=== PATIENT | female | born 1995 | race Two or more races ===

== ENCOUNTER 2024-08-02 11:29 | Inpatient (IN) | payer MEDICAID, SELFPAY ==
[2024-08-02] VITALS (70 sets, daily range): BP systolic 100–124; BP diastolic 51–71; PULSE 53–94; RESP 17–100; TEMP 36.6–37; O2SAT 97–100; BMI 24.1; BMI 24.2
--- NOTE | 2024-08-02 12:00 | PD.LDHP ---
Documentation for date of: 08/02/24 OB Labor/Induct. HPI History of Present Illness Chief complaint: 28 y/o 38w 5d presents to L&D in labor : 2 Para: 1 Term pregnancies: 1 pregnancies: 0 Living children: 1 History of Abortions: Spontaneous and Elective: 0 History of Vaginal deliveries: 1 History of sections: No History of : No Date of last menstrual period: 11/27/24 PIERRE: 08/11/24 Gestational Age (weeks): 38 Gestational Age (days): 5 Gestational age based on last menstrual period: -16 History of present illness: 28 y/o 38w 5d presents to L&D in labor at 4-5 cm dimple 2-3 minutes. Vertex, Membranes intact. GBS is neg. Pt's has been uncomplicated with the exception of anemia. Pt has a hx of nvdx1. EFW 3000g History of Present Dating criteria: based on 1st trimester US only Adequate Care: Yes Ultrasounds: normal mid trimester US Obstetrical complications: other (Anemia) Labs Maternal Blood Type: O Pos Labs: Positive: Rubella Titre, Negative: RPR, Hepatitis B, HIV, Chlamydia, Gonorrhea and Group Beta Strep and Unknown: Herpes Type 1, Herpes Type 2 and Covid-19 Review of Systems Review of Systems Systems Reviewed: All systems reviewed, normal except as documented Past Medical History Surgical History SURGICAL: Negative Section Meds Home Medications and Allergies Home Medications ?Medication ?Instructions ?Recorded ?Confirmed ?Type vit no.95-ferrous tab PO 08/02/24 History fumarate 28 mg-folic acid 800 mcg tablet () Allergies Allergy/AdvReac Type Severity Reaction Status Date / Time No Known Allergies Allergy Verified 08/02/24 11:48 OB Exam Physical Exam Vital signs: Temp Pulse Resp BP Pulse Ox O2 Del Method 98.2 F 75 20 116/62 100 Room Air 08/02/24 11:49 08/02/24 14:28 08/02/24 11:49 08/02/24 14:28 08/02/24 14:35 08/02/24 11:34 Constitutional Constitutional: no acute distress Routine HEENT Exam Head: Present normocephalic and atraumatic Eye: Present EOMI, PERRL and normal accommodation ENT: Present mucous membranes moist Routine Neck Exam Neck: Present supple, full ROM and trachea midline Routine Cardiovascular Exam Cardiovascular: Present RRR Routine Abdominal Exam Abdominal: Present soft and normoactive bowel sounds Comments: Gravid Uterus EFW 3000g Routine Exam External: Present normal urethra appearance; Absent lesions Detailed Labor and Delivery Exam Dilation (cm): 3-4 Effacement (%): 80 Cervix position: posterior station: -2 Consistency: soft Presentation: Vertex Membranes: intact Baseline heart rate: 125 monitor accelerations: 15x15 monitor decelerations: None group home variability: Moderate (11-25) Contraction frequency (min): 2-3 Routine Extremities Exam Extremities: Present full ROM Routine Back/Spine/Pelvis Exam Back/Spine: Present full ROM Routine Skin Exam Skin: Present intact, dry and warm Routine Neurological Exam Neurological: Present alert, oriented X3 and CN II-XII intact Routine Psychiatric Exam Psychiatric: Present normal affect and normal thought process OB Assessment & Plan Assessment and Plan (1) Normal labor: Status: Acute (2) with 38 completed weeks gestation: Status: Acute (3) Anemia affecting in third trimester: Status: Acute Additional Plan Induction method: none Plan: consult prn Additional Plan Comment: Routine admit orders Continuous EFM Anticipate
[2024-08-02] MEDS: fentaNYL CIT INJ 50 mCg/ML AMP 2ML 100 MCG IV (12:14)
[2024-08-02] MEDS: OXYTOCIN in NS 20 units 20 UNIT/1,000 ML BAG 125 UNIT IV (14:27)
[2024-08-02] MEDS: LIDOCAINE HCL 1% 20 ML VIAL INFL (14:28)
--- NOTE | 2024-08-02 14:40 | OBDSUM_ITS ---
Data ([facility]) Data Hx Section: No Maternal Blood Type: O Pos Rubella Titre: Positive RPR: Non-reactive Labs: Negative: RPR, Hepatitis B, HIV, Chlamydia, Gonorrhea and Group Beta Strep : 2 Para: 1 Term: 1 : 0 Livin Abortions: Spontaneous & Theraputic: 0 Delivery Data ([place]) Labor Data Initiation of labor: Spontaneous Induction/Augmentation Agent: None ROM date: 08/02/24 ROM time: 14:22 Amniotic membrane rupture type: Spontaneous Amniotic fluid description: Clear Delivery Data EDC: 08/11/24 EDC calculated by:: ultrasound Onset of labor date: 08/02/24 Onset of labor time: 07:30 Complete dilation date: 08/02/24 Complete dilation time: 14:24 delivery date: 08/02/24 delivery time: 14:24 Gestational age (weeks): 38 Gestational age (days): 5 Placenta delivery date: 08/02/24 Placenta delivery time: 14:27 Stage 1 total time: Labor - Stage 1 Duration 6 hours and 54 minutes Delivered by: Ani Ascencio Tree Tapping Laborer at delivery: No Support person(s) at delivery: FOB Delivery Method Delivery method: Normal Vaginal Delivery Presentation: Vertex position: OA Anesthesia Type Anesthesia Type: Local Anesthesia type: Local Delivery Room Medications Delivery room medications: Lidocaine (local), Pitocin 20 u IV and other (TXA) Placenta Placenta delivery description: Spontaneous Cord blood sent to lab: Yes cord blood collection: Cord Blood Type Episiotomy Episiotomy description: None Lacerations #1: Vaginal: 1st degree Perineal repair Sutures used for repair: 3.0 Vicryl (ct) EBL Estimated blood loss (ml): 200 Umbilical Cord cord description: 3 Vessels Additional Procedures of a viable female infant. Infant's anterior shoulder delivered with gentle downward traction on subsequent deliver the posterior shoulder and the body without complications. placed on mother's abdomen. Vigorous cry upon delivery. Cord was clamped. Cut by FOB. Cord blood obtained. Three- vessel cord noted. Placenta expelled spontaneously and intact. Patient sustained a first-degree vaginal laceration. Repaired using a 3-[address] suture. Perineum intact. Excellent hemostasis achieved after vigorous fundal massage and removal of clots from the posterior fornix. EBL 200. Sponge and needle count correct. Mother and baby stable, skin to skin and bonding in LDR. [place] Data ([place]) [place] Data order: 1 's gender: Female Identification band number: [id number] weight (gms): 3050 g Weight (pounds): 6 lbs and 11.6 ozs length: 48.26 cm 1 minute: 8 5 minutes: 9 10 minutes: 9
[2024-08-02] MEDS: TRANEXAMIC ACID 1,000 MG IVPB 1,000 MG/100 ML BAG 200 MG IV (15:30)
[2024-08-02 16:27] LABS: Basophils # (Auto) 0.1 Thou/mm3 (0.0-0.2); Basophils % (Auto) 0 % (0-2.5); Eosinophils # (Auto) 0.1 Thou/mm3 (0.0-0.5); Eosinophils % (Auto) 1 % (0-10); Hematocrit 29.7 % (36.0-46.0); Hemoglobin 9.3 g/dL (12.0-16.0); Immature Granulocytes % (Auto) 0 % (0-0); Immature Granulocytes Auto 0.04 Thou/mm3 (0.00-0.00); Lymphocytes # (Auto) 2.2 Thou/mm3 (1.0-4.8); Lymphocytes % (Auto) 18 % (10-50); Mean Corpuscular HGB Conc 31.3 g/dl (31.0-37.0); Mean Corpuscular Hemoglobin 22.2 pg (25.0-35.0); Mean Corpuscular Volume 71 fL (80-100); Monocytes # (Auto) 0.7 Thou/mm3 (0.0-0.8); Monocytes % (Auto) 5 % (0-12); Neutrophils # (Auto) 9.8 Thou/mm3 (1.8-7.7); Neutrophils % (Auto) 76 % (37-80); Nucleated Red Blood Cell % 0 /100 WBC (0); Platelet Count 374 Thou/mm3 (140-440); RDW Standard Deviation 39.6 fL (36.4-46.3); Red Blood Count 4.18 Miln/mm3 (4.00-5.20); White Blood Count 12.8 Thou/mm3 (3.6-11.0)
[2024-08-02 17:14] LABS: Syphilis Nonreactive (Nonreactive)
[2024-08-02 22:43] LABS: Basophils % (Auto) 0 % (0-2.5); Eosinophils % (Auto) 0 % (0-10); Hematocrit 28.2 % (36.0-46.0); Hemoglobin 8.9 g/dL (12.0-16.0); Immature Granulocytes % (Auto) 1 % (0-0); Immature Granulocytes Auto 0.07 Thou/mm3 (0.00-0.00); Lymphocytes # (Auto) 2.3 Thou/mm3 (1.0-4.8); Lymphocytes % (Auto) 15 % (10-50); Mean Corpuscular HGB Conc 31.6 g/dl (31.0-37.0); Mean Corpuscular Hemoglobin 22.6 pg (25.0-35.0); Mean Corpuscular Volume 72 fL (80-100); Monocytes % (Auto) 7 % (0-12); Neutrophils # (Auto) 11.5 Thou/mm3 (1.8-7.7); Neutrophils % (Auto) 77 % (37-80); Nucleated Red Blood Cell % 0 /100 WBC (0); Platelet Count 318 Thou/mm3 (140-440); RDW Standard Deviation 38.9 fL (36.4-46.3); Red Blood Count 3.93 Miln/mm3 (4.00-5.20); White Blood Count 14.9 Thou/mm3 (3.6-11.0)
[2024-08-03] VITALS: BP 97/52; PULSE 62; RESP 16; TEMP 36.9; O2SAT 100
[2024-08-03 04:00] VITALS: BP 103/62; PULSE 66; RESP 18; TEMP 36.8; O2SAT 98
--- NOTE | 2024-08-03 07:14 | PD.LDDS ---
DS: Providers Provider Date of admission: 08/02/24 11:46 Primary care physician: Randall Carrera MD Admitting Provider: Ani Ascencio CNM Attending Provider on Admission: Ani Ascencio CNM Attending Provider on DC: Ani Ascencio CNM Discharging Provider: Ani Ascencio CNM Anticipated date of discharge: 08/03/24 DS: Diagnosis Discharge Diagnosis (1) Normal spontaneous vaginal delivery: Status: Acute (2) Encounter for care of lactating mother: Status: Acute Problem List Completed Was Problem List Reviewed/Reconciled?: Yes Summary/Hosp Course Brief History: 28 y/o 38w 5d presents to L&D in labor at 4-5 cm dimple 2-3 minutes. Vertex, Membranes intact. GBS is neg. Pt's has been uncomplicated with the exception of anemia. Pt has a hx of nvdx1. EFW 3000g 08/02/24: of a viable female infant. Infant's anterior shoulder delivered with gentle downward traction on subsequent deliver the posterior shoulder and the body without complications. Infant placed on mother's abdomen. Vigorous cry upon delivery. Cord was clamped. Cut by FOB. Cord blood obtained. Three-vessel cord noted. Placenta expelled spontaneously and intact. Patient sustained a first-degree vaginal laceration. Repaired using a 3-[address] suture. Perineum intact. Excellent hemostasis achieved after vigorous fundal massage and removal of clots from the posterior fornix. EBL 200. Sponge and needle count correct. Mother and baby stable, skin to skin and bonding in LDR. 08/03/24: PPD#1 patient is stable and afebrile doing well and . Denies dizziness shortness of breath. Uterus is nontender fundus firm minimal lochia. Discharge instructions given. Patient to follow-up with Ani Ascencio CNM in 3 weeks or Robbie FONTANEZ. Peripartum Data Delivery Method: Normal Vaginal Delivery Episiotomy Description: None Laceration Description: yes and see Delivery Summary complications: none [place] 1: Gender: Female Disposition of : home Status at Discharge Cognitive/behavioral status at discharge: Alert and oriented x 3 Functional status at discharge: independent ambulation Overall status at discharge: patient is progressing back to baseline Time Spent with Patient Time attestation: Total time spent providing and/or coordinating discharge services: Time spent: Greater than 30 minutes Exam Vital Signs Temp Pulse Resp BP Pulse Ox O2 Del Method 98.2 F 74 20 113/71 100 Room Air 08/02/24 11:49 08/02/24 14:43 08/02/24 11:49 08/02/24 14:43 08/02/24 14:45 08/02/24 11:34 Constitutional Constitutional: no acute distress Routine HEENT Exam Head: Present normocephalic and atraumatic Eye: Present EOMI, PERRL and normal accommodation ENT: Present mucous membranes moist Routine Neck Exam Neck: Present supple, full ROM and trachea midline Routine Respiratory Exam Respiratory: Present chest non-tender, lungs clear, normal breath sounds and no resp distress Routine Cardiovascular Exam Cardiovascular: Present RRR Routine Abdominal Exam Abdominal: Present soft and normoactive bowel sounds; Absent tenderness or distended Comments: Uterus nontender Fundus firm Routine Exam Patient deferred: external exam Routine Extremities Exam Extremities: Present full ROM, pulses intact and normal capillary refill; Absent calf tenderness or tenderness Routine Back/Spine/Pelvis Exam Back/Spine: Present full ROM Routine Skin Exam Skin: Present intact, dry and warm Routine Neurological Exam Neurological: Present alert, oriented X3 and CN II-XII intact Routine Psychiatric Exam Psychiatric: Present normal affect and normal thought process Discharge Plan Plan Patient Disposition: HOME (Self Care) Patient condition on transfer: Stable Prescriptions/Referrals Prescriptions/Med Rec: New docusate sodium [Colace] 100 mg capsule 100 mg PO BID Qty: 60 0RF ibuprofen 600 mg tablet 600 mg PO Q6H PRN (Reason: pain) Qty: 90 0RF lanolin 50 % ointment 1 applic topical TID PRN (Reason: skin irritation) Qty: 15 0RF Continued PNV cmb#95-ferrous fumarate-FA [] 28 mg iron- 800 mcg tablet PO Patient Comments: TAKE 1 TABLET BY MOUTH EVERY DAY FOR 90 DAYS Referrals: Randall Carrera MD [Primary Care Provider] - Patient/Caregiver Discharge Instructions Meds to Beds: No Discharge Activity: activity as tolerated Other Discharge Activity Instructions:: Follow-up with Ani Ascencio CNM or Robbie FONTANEZ in 3 weeks Education Materials: After a Vaginal , : Caring for Yourself Print Language: Slovenian Stand Alone Forms: [place] Award Info., Patient Portal Info Letter Discharge Order Discharge Orders: Discharge (Routine); Ordered 08/03/24 Ordered By: Ani Ascencio Planned Discharge Date 08/03/24
[2024-08-03 08:00] VITALS: BP 104/66; PULSE 59; RESP 18; TEMP 36.7; O2SAT 98
[2024-08-03] MEDS: DOCUSATE SOD 100 MG CAPSULE PO (08:47)
[2024-08-03 11:43] VITALS: BP 106/67; PULSE 58; RESP 16; TEMP 36.7
== END 2024-08-03 16:22 | disposition home or self-care (01) | DRG 560 ==
LOC: S4SX 14:51 → S4NX 17:17
PROVIDERS: Admitting Provider Nurse Practitioner Women's Health; PCP Family Medicine; Visit Provider Nurse Practitioner Women's Health
DX: O99.02 Anemia complicating childbirth (principal); O70.0 First degree perineal laceration during delivery; Z3A.38 38 weeks gestation of pregnancy; Z37.0 Single live birth
CPT/HCPCS: 36415; 59025; 59409; 85025; 86780; 86850; 86900; 86901; 94762; J2590; J3010; J3490; A9270